=== PATIENT | male | born 1985 | race Two or more races ===

== ENCOUNTER → 2024-01-25 | Outpatient (CLI) | payer MEDICAID, SELFPAY | END | disposition home or self-care (01) | PROVIDERS: PCP Nurse Practitioner Family; Referring Provider Nurse Practitioner Family; Visit Provider Nurse Practitioner Family | DX: Z53.29 Procedure and treatment not carried out because of patient's decision for other reasons (principal) ==

== ENCOUNTER → 2024-01-31 | Outpatient (CLI) | payer MEDICAID, SELFPAY ==
--- NOTE | 2024-01-31 10:59 | XR_ITS ---
Examination: Clavicle 2 views, right Technique: Clavicle AP, angled up AP, 2 views Exam date and time: January 31, 2024 1104 hours INDICATIONS: Right clavicle pain 2 months FINDINGS: No fracture. No AC joint separation No cortical bone obstruction IMPRESSION: No fracture
== END | disposition home or self-care (01) ==
PROVIDERS: PCP Nurse Practitioner Family; Referring Provider Nurse Practitioner Family; Visit Provider Nurse Practitioner Family
DX: M25.511 Pain in right shoulder (principal)
CPT/HCPCS: 73000

== ENCOUNTER → 2024-06-15 | Outpatient (CLI) | payer MEDICAID, SELFPAY | END | disposition home or self-care (01) | LOC: CDIM 11:54 | PROVIDERS: PCP Student in an Organized Health Care Education/Training Program; Referring Provider Student in an Organized Health Care Education/Training Program; Visit Provider Student in an Organized Health Care Education/Training Program | DX: M54.50 Low back pain, unspecified (principal) ==

== ENCOUNTER → 2024-06-22 | Outpatient (CLI) | payer MEDICAID, SELFPAY ==
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
== END | disposition home or self-care (01) ==
PROVIDERS: PCP Student in an Organized Health Care Education/Training Program; Referring Provider Student in an Organized Health Care Education/Training Program; Visit Provider Student in an Organized Health Care Education/Training Program
DX: S19.9XXA Unspecified injury of neck, initial encounter (principal); S29.9XXA Unspecified injury of thorax, initial encounter; S39.92XA Unspecified injury of lower back, initial encounter; V89.2XXA Person injured in unspecified motor-vehicle accident, traffic, initial encounter
CPT/HCPCS: 72050; 72072; 72110

== ENCOUNTER 2024-09-27 15:30 | Outpatient (RCR) | payer MEDICAID, SELFPAY ==
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
--- NOTE | 2024-09-15 14:27 | PT.ODAYNRPT ---
PT Outpatient Daily Note OP Daily Note Outpatient Physical Therapy Treatment Date: 09/15/24 Visit Reasons: Back pain Subjective: Pt's back and hip is about the same. Pt continues to have pain. Objective: Please see flow chart for list of ther ex performed Assessment: tolerate exercises with minimal pain Plan: Continue with PT Length of Time (minutes) of Treatment: 30 Minutes Procedure Charges Therapeutic Exercise 30 minutes: Yes
--- NOTE | 2024-09-27 15:55 | PT.ODAYNRPT ---
PT Outpatient Daily Note OP Daily Note Outpatient Physical Therapy Treatment Date: 09/27/24 Visit Reasons: Back pain Subjective: Pt's back feels about the same. No change in right LE pain lately. Objective: Please see flow chart for list of ther ex performed Assessment: able to stretch the right Hs longer with less pain reported today. Minimal changes in pain post PT session Plan: Continue with PT Length of Time (minutes) of Treatment: 30 Minutes Procedure Charges Therapeutic Exercise 30 minutes: Yes
--- NOTE | 2024-11-03 12:00 | PT.ODS1RPT ---
PT OP Progress/Discharge Note Date of Service: 11/03/24 Progress Note/DC Note Progress Note/Discharge Note: DC Note Patient Information Visit Reasons: Back pain Service Discharge Date: 11/03/24 Status Assessment: Pt has been seen for 3 visits (eval + 2 visits). Pt last treated on 09/27/24 and has not returned to therapy. Pt has been contact multiple times regarding follow up appts without success due to disconnected phone number. At this time Pt will be d/c from care due to non-compliance per attendance policy. Pt did not meet set goals in therapy; thank you for your referrals
== END 2024-10-08 23:59 | disposition home or self-care (01) ==
LOC: CPTX 15:30
PROVIDERS: PCP Student in an Organized Health Care Education/Training Program; Referring Provider Student in an Organized Health Care Education/Training Program; Visit Provider Student in an Organized Health Care Education/Training Program
DX: M54.50 Low back pain, unspecified (principal); M25.551 Pain in right hip; M54.2 Cervicalgia; Z71.6 Tobacco abuse counseling; F17.210 Nicotine dependence, cigarettes, uncomplicated
CPT/HCPCS: 97110; 97162

== ENCOUNTER → 2025-01-15 | Outpatient (CLI) | payer MEDICAID, SELFPAY ==
--- NOTE | 2025-01-15 16:02 | XR_ITS ---
Examination: Foot, left, 3 views Technique: AP, oblique, lateral views foot, 3 views Date and time of exam: January,, 1643 hours INDICATIONS: Left foot pain beginning 1 month ago. FINDINGS: Mild narrowing first metatarsophalangeal joint Mild osteopenia No fracture No erosive or other significant arthritic change IMPRESSION: No fracture No erosive or other significant arthritic change
== END | disposition home or self-care (01) ==
LOC: CDIM 15:46
PROVIDERS: Referring Provider Student in an Organized Health Care Education/Training Program; Visit Provider Student in an Organized Health Care Education/Training Program
DX: M79.672 Pain in left foot (principal)
CPT/HCPCS: 73630